=== PATIENT | female | born 1995 | race Caucasian/White ===

== ENCOUNTER 2021-06-21 17:07 | Emergency (ER) | payer BC, OTHER ==
[~2021-06-21] VITALS: Ht 175.3 cm; Wt 50.9 kg
[2021-06-21 17:09] VITALS: BP 133/79
--- NOTE | 2021-06-21 19:20 | NUR ---
NIL X 1
--- NOTE | 2021-06-21 19:45 | NUR ---
NIL X 2
--- NOTE | 2021-06-21 20:06 | NUR ---
NIL X 3
== END 2021-06-21 20:07 | disposition left against medical advice (07) ==
LOC: ED 17:30
DX: R52 Pain, unspecified (principal)
CPT/HCPCS: 99281